=== PATIENT | male | born 1945 | race Caucasian/White ===

== ENCOUNTER → 2018-01-07 | Outpatient (CLI) | payer MEDICARE, OTHER | LOC: M WUC 16:49 | DX: S86.312A Strain of muscle(s) and tendon(s) of peroneal muscle group at lower leg level, left leg, initial encounter (principal); M79.89 Other specified soft tissue disorders; M17.12 Unilateral primary osteoarthritis, left knee; X58.XXXA Exposure to other specified factors, initial encounter; Y92.9 Unspecified place or not applicable | CPT/HCPCS: 73590 ==

== ENCOUNTER → 2018-01-10 | Outpatient (CLI) | payer MEDICARE | LOC: M RAD 09:24 | DX: R22.42 Localized swelling, mass and lump, left lower limb (principal); I72.4 Aneurysm of artery of lower extremity; Z98.62 Peripheral vascular angioplasty status | CPT/HCPCS: 93971 ==